=== PATIENT | male | born 1945 | race Caucasian/White ===

== ENCOUNTER 2016-07-19 11:25 | Outpatient (CLI) | payer MEDICARE, OTHER ==
[~2016-07-19] VITALS: Ht 175.3 cm; Wt 99.1 kg
--- NOTE | ~2016-07-19 | OP ---
PATIENT NAME: VERONIQUE STERLING MEDICAL RECORD: [id number] :43 LOCATION:D.CAT ADMISSION DATE: SURGEON: KULDEEP HUNT MD DATE OF OPERATION: 07/19/2016 PROCEDURES: Left heart catheterization, selective coronary angiography, right radial approach. CATHETERS: A 5-Kiswahili sheath. The procedure was well tolerated and we proceeded immediately to PTCA stenting of the LAD. FINDINGS: Left ventriculography in 30-degree MEAD view shows mild global hypokinesis, EF appears to be marked reduced 40% to 45%. CORONARY ANATOMY: Left main: Left main is free of disease. LAD: Has a long diffuse stenosis about 80%, starting at takeoff of the first septal and ____ takeoff of the first diagonal. CIRCUMFLEX: Large vessel, free of disease. RIGHT CORONARY ARTERY: Free of disease. IMPRESSION: Single-vessel disease, mild myopathy. PLAN: Intervention of this vessel momentarily. DESCRIPTION OF PROCEDURE: A 5-Kiswahili sheath was changed for a 6-Kiswahili sheath. An XB LAD guide catheter provided good guide catheter support followed by ____ cm BMW wire was placed across the site occluded LAD, down a portion of this vessel. Stent deployed was a 3.5 x 15-mm Integrity nondrug eluting stent to 14 atmospheres. Final angiography shows excellent resolution of 80% stenosis, no significant residual. Plavix was loaded in the lab. Sheath was closed with TR band. Integrilin was used. We will also add ARB for his mild myopathy. TRANSINT:[id number] Voice Confirmation ID: [id number] DOCUMENT ID: [id number] KULDEEP HUNT MD CC: [id number] DICTATION DATE: 07/19/16 1458 SUPERVISOR BOTTLE MACHINES: 07/19/16 2343 DEP CLI 07/19/16 [place] [id number] [place] [id number]
--- NOTE | ~2016-07-19 | HP ---
PATIENT: VERONIQUE STERLING MEDICAL RECORD: [id number] ACCOUNT: [id number] LOCATION:[facility]EL[facility] : 43 ADMISSION DATE: 07/19/16 HISTORY AND PHYSICAL EXAMINATION HISTORY OF PRESENT ILLNESS: A 71-year-old gentleman with a history of dyspnea on exertion/angina, who underwent Cardiolite stress testing in the office showed a reversible defect with decreased LV systolic function, EF 45%. He is being admitted for diagnostic angiography. PAST MEDICAL HISTORY: Includes a history of gastroesophageal reflux disease, osteoarthritis. REVIEW OF SYSTEMS: The patient reports easy bruising but reports no swollen glands. The patient reports no fever, no night sweats, no significant weight gain, no significant weight loss. No significant exercise tolerance. The patient reports no dry eyes, no irritation, no vision change. Patient reports no difficulty hearing and no ear pain. Patient reports no frequent nose bleeds or nose and sinus problems. Patient reports on arm pain on exertion. No shortness of breath while lying down. No history of heart murmur. Patient reports no cough, no wheezing or coughing up blood. Patient reports no abdominal pain, no vomiting. Normal appetite. No diarrhea and not vomiting blood. No nausea and no constipation. Patient reports no incontinence. No difficulty urinating. No hematuria. No increased frequency. Patient reports no muscle aches. No weakness, no arthralgias, no back pain. No swelling of the extremities. Patient reports no abnormal mole, no jaundice, no rashes. Reports no loss of consciousness. No weakness and no numbness. No seizures, dizziness, or headaches. The patient reports no depression, no sleep disturbance, feeling safe in a relationship and no alcohol abuse. Patient reports on fatigue. Reports no runny nose or sinus pressure. No itching, no hives, and no frequent sneezing. PHYSICAL EXAMINATION: GENERAL: Pleasant gentleman in no acute distress, appears stated age. VITAL SIGNS: Pulses 80 and regular, blood pressure 116/62. HEENT: Normocephalic and atraumatic. NECK: Negative JVD or bruit. HEART: Regular. LUNGS: Echols clear. ABDOMEN: Soft and nontender. EXTREMITIES: Pulse 2+. There is no edema. NEUROLOGIC: Grossly intact. IMPRESSION: Angina with positive nuclear stress testing. PLAN: Catheterization and intervention based on the above. TRANSINT:[id number] Voice Confirmation ID: [id number] DOCUMENT ID: [id number] HISTORY AND PHYSICAL [id number] VERONIQUE STERLING GREGORY A MD CC: [id number] DICTATION DATE: 07/19/16 151 SIZING END BANDER: 07/19/16 1618 REG [facility] [address] [place] [id number]
--- NOTE | ~2016-07-19 | HEMODYNAMI ---
PATIENT:VERONIQUE STERLING MEDICAL RECORD: [id number] : 41 LOCATION:DTIERRA ADMISSION DATE: 07/19/16 Generatedon:07/19/201614:59 Patient name: VERONIQUE STERLING Patient #: [id number] SSN: : 1945 Date of study: 07/19/2016 Page: Of Hemodynamic Procedure Report Patient Data Patient Demographics Procedure consent was obtained First Name: VERONIQUE Gender: Male Last Name: ASHER : 1945 Patient #: [id number] Age: 71 year(s) Race: Unknown Additional ID: [id number] Contact details [address]: [address] [place] [address] State: [place] City: [place] Zip code: [address] Past Medical History Allergies Allergen Reaction Date Comments Reported Sulfa drugs 07/19/2016 Admission Admission Data Admission Date: 07/19/2016 Admission Time: 11:25 Lab Results Lab Result Date: 07/19/2016 Lab Result Time: 0:00 Biochemistry Name Units Result Min Max BUN mg/dl 17 --(---*)-- 7 18 Creatinine mg/dl 1.1 --(--*-)-- 0.6 1.3 CBC Name Units Result Min Max Hemoglobin g/dl 16.7 --(---*)-- 13.5 17.5 Procedure Procedure Types Cath Procedure Diagnostic Procedure [facility] w/Coronaries PCI Procedure Coronary Stent Initial Miscellaneous Procedures Moderate Sedation up to 30 minutes Procedure Description Procedure Date Procedure Date: 07/19/2016 Procedure Start Time: 14:36 Procedure End Time: 14:58 Procedure Staff Name Function Michelle Valdez RN Nurse Sudhir Watson RT Scrub Shine Roa RT Monitor Joaquín Braxton MD Performing Physician Procedure Data Cath Procedure Fluoroscopy Diagnostic fluoroscopy Total fluoroscopy Time: 4.5 time: 4.5 min min Diagnostic fluoroscopy Total fluoroscopy dose: 847 dose: 847 mGy mGy Contrast Material Contrast Material Type Amount (ml) Isovue 300 123 Entry Location Entry Primary Successful Side Size Upsize Upsize Entry Closure Pak ccessful Closure Location (Fr) 1 (Fr) 2 (Fr) Remarks Device Remarks Radial Right 6 Fr Mechanical artery Short Compression Procedure Complications No complications Procedure Medications Medication Administration Route Dosage Oxygen NC 2 l/min Heparin Flush Bag added to field 2 bags (1000units/500ml NS) Lidocaine 2% added to field 20 Radial Cocktail added to field 1 syringe (Verapomil 2mg/Nitro 400mcg/Heparin 1500units) Benadryl I.V. 50 mg Versed I.V. 1 mg Fentanyl I.V. 50 mcg Versed I.V. 1 mg Fentanyl I.V. 50 mcg Versed I.V. 1 mg Radial Cocktail I.A. 1 syringe (Verapomil 2mg/Nitro 400mcg/Heparin 1500units) Heparin Bolus I.V. 5000 units Integrilin (Bolus I.V. 9 ml 2mg/ml) Versed I.V. 1 mg Plavix P.O. 600 mg Hemodynamics Rest HGB: 16.7 (g/dl) Heart Rate: 89 (bpm) Pressure Samples Time Site Value (mmHg) Purpose Heart Use Rate(bpm) 14:36 LV 125/-1,7 EDP 36 14:37 AO 125/89(106) Pullback 89 14:37 LV 122/6,7 Pullback 89 Gradients Valve Time Site 1 Site 2 Mean SEP/DFP Peak To Heart Use (mmHg) (sec/min) Peak Rate (mmHg) (bpm) Aortic 14:37 LV AO 0 5 0 89 122/6,7 125/89(106) Calculations Valve P-P Mean Valve Index Valve Source Name Gradient Area Flow (cm2) Aortic 0 0 0 0 Snapshots Pre Cath Intra NCS Post Cath Vital Signs Time Heart Resp SPO2 etCO2 [id number] NIBP (mmHg) Rhythm Pain Sedatio n Rate (ipm) (%) (mmHg) (mmHg) Status Level (bpm) 14:19:26 98 12 98 0 0 Measuring NSR 0 (11) 10(A) , No pain 14:19:57 84 16 98 0 0 138/102(116) NSR 0 (11) 10(A) , No pain 14:24:05 69 18 98 0 0 153/95(123) NSR 0 (11) 10(A) , No pain 14:28:19 82 19 98 0 0 160/100(116) NSR 0 (11) 10(A) , No pain 14:32:37 92 15 98 0 0 163/105(134) NSR 0 (11) 9(A) , No pain 14:36:49 96 16 95 0 0 138/97(116) NSR 0 (11) 9(A) , No pain 14:40:59 95 16 95 0 0 142/91(124) NSR 0 (11) 9(A) , No pain 14:45:04 96 16 95 0 0 135/87(116) NSR 0 (11) 9(A) , No pain 14:49:12 93 16 96 0 0 132/94(117) NSR 0 (11) 10(A) , No pain 14:54:11 95 12 97 0 0 132/104(122) NSR 0 (11) 10(A) , No pain Medications Time Medication Route Dose Verified Delivered Reason Note s Effectiveness by by 14:17:06 Oxygen NC 2 l/min Joaquín Michelle Per physician [facility] Georgi Valdez RN, MD 14:17:35 Heparin Flush added 2 bags Joaquín Joaquín used for Bag to [facility] procedure (1000units/500ml field MD LOJA NS) 14:17:43 Lidocaine 2% added 20ml Joaquín Sierraory used for to vial [place] [facility] procedure field MD LOJA 14:17:51 Radial Cocktail added 1 Joaquín Joaquín used for ([facility] 2mg/Nitro field MD LOJA 400mcg/Heparin 1500units) 14:25:18 Benadryl I.V. 50 mg Joaquín Michelle Per physician [facility] Georgi Valdez RN, MD 14:28:13 Versed I.V. 1 mg Joaquín Michelle for sedation St. Georgi Valdez RN, MD 14:28:31 Fentanyl I.V. 50 mcg Joaquín Michelle for sedation St. Georgi Valdez RN, MD 14:30:29 Versed I.V. 1 mg Joaquín Michelle for sedation [facility]. Georgi Valdez RN, MD 14:30:38 Fentanyl I.V. 50 mcg Joaquín Michelle for sedation St. Georgi Valdez RN, MD 14:33:43 Versed I.V. 1 mg Joaquín Michelle for sedation St. Georgi Valdez RN, MD 14:35:37 Versed I.V. 1 mg Joaquín Pillaica for sedation St. Georgi Valdez RN, MD 14:36:30 Radial Cocktail I.A. 1 Joaquín Yanes for (Verapomil syringe [facility]. Georgi Braxton vasodilation 2mg/Nitro MD LOJA 400mcg/Heparin 1500units) 14:42:30 Heparin Bolus I.V. 5000 Joaquín Martinez for dose units [facility]. Georgi Valdez RN anticoagulation verified wtih dr dawson 14:45:49 Integrilin I.V. 9 ml Joaquín Martinez for wast ed 1 (Bolus 2mg/ml) [facility]. Georgi Valdez RN antiplatelet ML MD therapy 14:50:13 Plavix P.O. 600 mg Joaquín Michelle for [facility]. Georgi Valdez RN antiplatelet MD therapy Procedure Log Time Note 13:55:17 Shine Roa RT(R) sent for patient. Start room use. 14:03:18 Time tracking: Regular hours 14:03:23 Plan of Care:Hemodynamics will remain stable., Cardiac rhythm will remain stable., Comfort level will be maintained., Respiratory function will remain adequate., Patient/ family verbilizes understanding of procedure., Procedure tolerated without complication., Recovers from procedure without complications.. 14:10:33 Patient received from Pre/Post Procedure Room to [facility]3] 1 Alert and oriented. Tansferred to table in Supine position. 14:10:35 Correct patient and procedure confirmed by team. 14:10:35 Warm blankets applied, and shae hugger turned on for patient comfort. 14:10:38 Signed procedure consent form obtained from patient. 14:10:39 ECG and BP/O2 sat monitors applied to patient. 14:17:06 Oxygen 2 l/min NC was administered by Michelle Valdez RN; Per physician; 14:17:35 Heparin Flush Bag (1000units/500ml NS) 2 bags added to field was administered by Joaquín Braxton MD; used for procedure; 14:17:36 Vital chart was started 14:17:43 Lidocaine 2% 20ml vial added to field was administered by Joaquín Braxton MD; used for procedure; 14:17:51 Radial Cocktail (Verapomil 2mg/Nitro 400mcg/Heparin 1500units) 1 syringe added to field was administered by Joaquín Braxton MD; used for procedure; 14:25:03 Baseline sample Acquired. 14:25:07 Rhythm: sinus tachycardia 14:25:08 Full Disclosure recording started 14::18 Benadryl 50 mg I.V. was administered by Michelle Valdez RN; Per physician; 14:25:18 Pre-procedure instructions explained to patient. 14:25:19 Pre-op teaching completed and patient verbalized understanding. 14:25:21 Family in waiting room. 14:25:26 Patient NPO since Midnight. 14:25:40 Patient allergic to Sulfa drugs 14:25:42 Is the patient allergic to Iodine/contrast media? No. 14::44 Is patient on blood thinner?No 14:25:46 Patient diabetic? No. 14::47 ----Pre-sedation anethsthesia assessment.---- 14:25:50 Previous problem with sedation/anesthesia? No ? 14:25:51 Snore? Yes 14:25:52 Sleep apnea? No 14:25:54 Deviated septum? No 14:25:55 Opens mouth fully? Yes 14:25:58 Sticks out tongue? Yes 14:26:00 Airway obstruction? No ? 14:26:04 Dentures? Yes in tight 14:26:11 Pre procedure: right dorsailis pedis pulse 1+ Palpable, but thready & weak; easily obliterated 14:26:14 Modified Heladio's test Ulnar > 7 seconds. 14:26:17 Patient pain scale 0/10 ?. 14:26:22 IV patent on arrival in left wrist with 0.9% NaCl at 10ml/hr. 14::47 Lab Result : Creatinine 1.1 mg/dl 14::47 Lab Result : BUN 17 mg/dl 14::48 Lab Result : Hemoglobin 16.7 g/dl 14::51 Lab results completed and on chart. 14::53 Right Radial & Right Groin area was prepped with chlora-prep and draped in sterile fashion 14::55 Alarms reviewed by R. N. 14::55 Sharps counted by scrub and verified by R.N. 14::56 --------ALL STOP TIME OUT------ 14:26:57 Final Timeout: patient, procedure, and site verified with staff and physician. All members of the team are in agreement. 14:26:58 Right Radial & Right Groin site verified by team. 14:27:02 Physical assessment completed. ASA score P 2 - A patient with mild systemic disease as per Kwasi Hunt MD. 14:27:06 Sedation plan: IV Moderate Sedation Versed, Fentanyl 14:27:11 Use device set Radial Dx 14:27:12 Acist Syringe opened to sterile field. 14:27:12 Medline Cath Pack opened to sterile field. 14:27:13 Bag Decanter opened to sterile field. 14:27:13 Terumo 6Fr Slender Glidesheath opened to sterile field. 14:27:13 St Otf 260cm J .035 wire opened to sterile field. 14:27:14 Acist Hand Control opened to sterile field. 14:27:14 Acist Manifold opened to sterile field. 14:27:15 Tegaderm 4 x 4 opened to sterile field. 14:27:15 MBrace Wrist Support opened to sterile field. 14:28:13 Versed 1 mg I.V. was administered by Michelle Valdez RN; for sedation; 14:28:31 Fentanyl 50 mcg I.V. was administered by Michelle Valdez RN; for sedation; 14:30:29 Versed 1 mg I.V. was administered by Michelle Valdez RN; for sedation; 14:30:38 Fentanyl 50 mcg I.V. was administered by Michelle Valdez RN; for sedation; 14:33:43 Versed 1 mg I.V. was administered by Michellediane Valedz RN; for sedation; 14:35:37 Versed 1 mg I.V. was administered by Michellediane Valdez RN; for sedation; 14:35:44 Procedure started. 14:36:17 Local anesthetic to right radial artery with Lidocaine 2% by Joaquín Braxton MD.INITIAL ACCESS ONLY 14:36:26 A 6 Fr Short sheath was inserted into the Right Radial artery 14:36:30 Radial Cocktail (Verapomil 2mg/Nitro 400mcg/Heparin 1500units) 1 syringe I.A. was administered by Joaquín Braxton MD; for vasodilation; 14:36:37 Terumo 6Fr [place] 4.0 guide catheter opened to sterile field. 14:36:45 LV angiography performed. 14:36:51 LV gram done using MEAD 14:36:53 LV hemodynamics recorded. 14:36:56 Injector settings: Ml/sec: 7, Volume: 15, 14:37:19 EF : 45 % 14:38:13 LCA angiography performed. 14:39:20 RCA angiography performed. 14:39:33 LCA angiography performed. 14:39:58 Catheter removed. 14:42:10 DailyPath BasixCompak Inflation Kit opened to sterile field. 14:42:11 Ecelles Carson BMW [place] 2 J-tip 300cm 0.014 guide wir opened to sterile field. 14:42:11 LegUP 6FR XBLAD 3.5 guide catheter opened to sterile field. 14:42:30 Heparin Bolus 5000 units I.V. was administered by Michelle Valdez RN; for anticoagulation; dose verified wtih dr dawson 14:42:36 6 Fr XBLAD 3.5 guide catheter was inserted over the wire 14:44:05 ACC PCI Site: pLAD has 80% stenosis. 14:44:08 ACC Pre-intervention ARMIDA Flow is 3. 14:44:54 BMW wire advanced. 14:45:49 Integrilin (Bolus 2mg/ml) 9 ml I.V. was administered by Michelle Valdez RN; for antiplatelet therapy; wasted 1 ML 14:47:22 Inflation Number: 1 A Medtronic Integrity 3.5 X 15 stent was prepped and advanced across the Prox LAD. The stent was deployed at 0 TOMAS for 0:30 (min:sec). 14:47:46 Stent catheter was removed intact over wire. 14:47:46 Wire removed. 14:47:47 Guide catheter removed. 14:47:50 ACC Post-intervention ARMIDA Flow is 3. 14:48:03 Sheath removed intact; hemostasis achieved with Mechanical Compression to the Right Radial artery. 14:48:08 Terumo TR Band Standard opened to sterile field. 14:48:11 Procedure ended.(Physican Out) 14:48:24 Contrast amount:Isovue 300 123ml. 14:48:31 Fluoroscopy time 04.50 minutes. 14:48:52 Fluoroscopy dose: 847 mGy 14:48:52 Flurop Dose total: 847 14:50:13 Plavix 600 mg P.O. was administered by Michelle Valdez RN; for antiplatelet therapy; 14:50:15 Sharps counted by scrub and verified by R.N. 14:50:18 TR band inflated with 10cc of air. 14:50:22 Insertion/operative site no bleeding no hematoma. 14:50:31 Post right radial artery:stable 14:51:44 Post Procedure Pulses reassessed and unchanged 14:52:56 Post procedure rhythm: sinus rhythm 14:52:57 Post procedure instruction explained to patient.Patient verbalizes understanding. 14:53:12 Procedure type changed to Cath procedure, Diagnostic procedure, LHC, LHC w/Coronaries, PCI procedure, Coronary Stent Initial, Miscellaneous Procedures, Moderate Sedation up to 30 minutes 14:53:36 Procedure and supply charges have been captured, reviewed, submitted and are correct. 14:54:10 Procedure Complication : No complications 14:54:13 Vital chart was stopped 14:58:25 See physician's report for complete and final results. 14:58:28 Report given to Pre/Post Procedure Room. 14:58:32 Patient transfered to Pre/Post Procedure Room with Stretcher. 14:58:34 Procedure ended. 14:58:34 Full Disclosure recording stopped 14:58:46 ACC-PCI Only Patient was given prescriptions, or instructed by Joaquín Braxton MD to start/continue the following medications upon discharge: Plavix 14:58:48 End room use (Document Last) Intervention Summary Intervention Notes Time ActionType Lesion and Equipment Action# Pressure Duration Attributes Used 14:47:22 Place stent Prox LAD Medtronic 1 0 00:30 Integrity 3.5 X 15 stent Device Usage Item Name Manufacture Quantity Catalog Hospital Part Current Minimal Lot# / Number Charge Number Stock Stock Serial# Code Acist Acist 1 32163 [id number] 895395 [id number] 20 Compliance Assurance Medical Systems Inc Medline Cardinal 1 [id number] 759102 27545 766072 5 Cath Pack Health Bag Microtek 1 2001S 683641 66987 300003 5 Delta Plant Technologies Medical Inc. Terumo 6Fr Terumo 1 [id number] 023388 409829 924212 [address] Ot[address] St Otf 1 958221 167641 814336 375160 30 260cm J .035 wire Acist Hand Acist 1 40810 044589 813622 715189 5 Control Medical Systems Inc Acist Acist 1 45797 342986 669703 655942 5 Manifold Medical Systems Inc Tegaderm 4 3M 1 1626W 179210 806578 008123 5 x 4 MBrace Advanced 1 140-0250-00 628230 83897 750291 5 Wrist Vascular Support Dynamics Terumo 6Fr Terumo 1 43-3311 773537 921880 993061 1 [place] 4.0 guide catheter Merit Merit 1 [id number] 196943 272970 736766 15 BasixCompak Medical Inflation Kit Carpio BMW Carpio 1 [id number] 696812 286859 320767 5 [place] 2 Vascular J-tip 300cm 0.014 guide wir Cordis 6FR Cardinal 1 [id number] 565850 094364 790994 10 XBLAD 3.5 Health guide catheter Medtronic Medtronic 1 [id number] 592931 759579 715664 7 [id number] Integrity 3.5 X 15 stent Terumo TR Terumo 1 [id number] 022891 890194 340585 40 Band Standard Signature Audit [place] Stage Time Signature Unsigned Intra-Procedure 07/19/2016 Shine Roa 2:59:10 PM RT(R) Signatures Monitor : Shine Roa RT Signature : Date : Time : [facility] [address] [place] [address]
[2016-07-19] MEDS ORDERED: CYMBALTA60 MG PO (12:16)
[2016-07-19] MEDS ORDERED: CIALIS5 MG PO (12:17)
[2016-07-19] MEDS ORDERED: PROTONIX40 MG PO (12:18)
[2016-07-19] MEDS ORDERED: FOLATE0.4 MG PO (12:18)
[2016-07-19 12:20] VITALS: BP 160/94; Ht 175.3 cm; Wt 99.1 kg
[2016-07-19 12:54] LABS: BASOPHILS 0.4 % (0-2); EOSINOPHILS 5.9 % (0-7); HEMATOCRIT 50.8 % (42.0-54.0); HEMOGLOBIN 16.7 g/dL (13.5-17.5); IMMATURE GRANULOCYTES 0.2 % (0-5); LYMPHOCYTES 27.3 % (15-50); MCH 30.3 pg (26.0-34.0); MCHC 32.9 g/dL (31.0-37.0); MCV 92.2 fL (80.0-100.0); MEAN PLATELET VOLUME 9.3 fL (7.4-10.4); MONOCYTES 13.2 % (2-11); PLATELET COUNT 244 10x3/uL (130-400); RBC 5.51 10x6/uL (4.20-6.10); RDW 13.1 % (11.5-14.5)
[2016-07-19 13:24] LABS: ANION GAP 7.6 mmol/L (8-16); CALCIUM 9.2 mg/dL (8.5-10.1); CARBON DIOXIDE 34.2 mmol/L (21.0-32.0); CREATININE - SERUM 1.1 mg/dL (0.6-1.3); POTASSIUM - SERUM 4.8 mmol/L (3.5-5.1)
[2016-07-19] MEDS ORDERED: HYZAAR 50-12.51 TAB PO (15:18)
[2016-07-19] MEDS ORDERED: PLAVIX75 MG PO (15:19)
--- NOTE | 2016-07-19 19:15 | NUR ---
1530-RIGHT WRIST-CDI, TR BAND INTACT, NO BLEEDING NOTED 1600-TR BAND INTACT, NO BLEEDING, AT SIDE
--- NOTE | 2016-07-19 19:47 | NUR ---
1900-TR BAND OFF- NO BLEEDING- BAND AID APPLIED, WRITTEN AND VERBAL INSTRUCTIONS GIVEN TO PT AND , VERBAL UNDERSTANDING, DENIES FURTHUR NEEDS, D'C HOME WITH
== END 2016-07-19 19:15 | disposition home or self-care (01) ==
LOC: D.CATH 11:25
PROVIDERS: Internal Medicine Interventional Cardiology
DX: I20.9 Angina pectoris, unspecified (principal); R94.30 Abnormal result of cardiovascular function study, unspecified; Z01.812 Encounter for preprocedural laboratory examination

== ENCOUNTER → 2018-02-12 09:31 | Outpatient (CLI) | payer MEDICARE, OTHER ==
[2016-07-19 12:20] VITALS: BMI 32.2
--- NOTE | ~2018-02-12 | ST ---
PATIENT:VERONIQUE STERLING MEDICAL RECORD: [id number] SEX: M LOCATION:[facility] ORDER #: ADMISSION DATE: 02/12/18 AGE OF PATIENT: 73 REFERRING PHYSICIAN: INTERPRETING PHYSICIAN: NITHYA GROVE MD DATE OF SERVICE: 02/12/2018 PROCEDURE: Nuclear Stress Test. INDICATION: Angina and coronary artery disease, hypertension, palpitations, it was pharmacologic. The patient was exercised on standard Lexiscan protocol with 33.0 mCi of sestamibi injected at peak stress, 11.0 mCi injected previously for rest images. FINDINGS: Gated SPECT reveals a depressed ejection fraction of 45% with decreased thickening and brightening throughout the inferior segments. SPECT imaging: Cardiolite was used myocardial fusion agent. There is a mixed perfusion defect inferiorly partially fixed, partially reversible. This includes the basal, mid apical inferior segments. There is reversibility laterally. These includes the basal, mid, apical, lateral segments. OVERALL IMPRESSION: This is an abnormal nuclear stress test, fixed perfusion defect inferiorly, reversibility laterally, suggestive of coronary artery disease and possibly multivessel disease. We will proceed with coronary angiography as follow study. TRANSINT:[id number] Voice Confirmation ID: [id number] DOCUMENT ID: [id number] NITHYA GROVE MD at 1718 CC: [id number] DICTATION DATE: 02/12/18 1641 [facility] OFFICER: 02/13/18 0733 [facility] CLI 02/12/18 [facility] [address] [place] [address]
[~2018-02-12 09:31] MED LIST: BAYER CHEWABLE81 MG PO; CIALIS5 MG PO; CRESTOR5 MG PO; CURCUMIN PO; CYMBALTA60 MG PO; FOLATE0.4 MG PO; HYZAAR 50-12.51 TAB PO; LOPRESSOR25 MG PO; METHYLFOLATE PO; MOBIC7.5 MG PO; PLAVIX75 MG PO; PROTONIX40 MG PO; SINGULAIR10 MG PO; VITAMIN B-12500 MC1 PO; VITAMIN D2000 UNIT PO
== END | disposition home or self-care (01) ==
LOC: D.HCCARDIO 09:30
DX: I25.119 Atherosclerotic heart disease of native coronary artery with unspecified angina pectoris (principal)

== ENCOUNTER 2018-02-18 10:48 | Outpatient (CLI) | payer MEDICARE, OTHER ==
[~2018-02-18] VITALS: Ht 175.3 cm; Wt 102.3 kg
--- NOTE | ~2018-02-18 | HEMODYNAMI ---
PATIENT:VERONIQUE STERLING MEDICAL RECORD: [id number] : 41 LOCATION:[facility] ADMISSION DATE: 02/18/18 Generatedon:02/18/201813:56 Patient name: VERONIQUE STERLING Patient #: [id number] SSN: : 1945 Date of study: 02/18/2018 Page: Of Hemodynamic Procedure Report Patient Data Patient Demographics Procedure consent was obtained First Name: VERONIQUE Gender: Male Last Name: ASHER : 1945 Patient #: [id number] Age: 73 year(s) Race: Unknown Additional ID: [id number] Contact details [address]: [address] [place] [address] State: [place] City: [place] Zip code: [address] Past Medical History Allergies Allergen Reaction Date Comments Reported Sulfa drugs 07/19/2016 Other allergy 02/18/2018 Sulfa Admission Admission Data Admission Date: 02/18/2018 Admission Time: 10:48 Height (in.): 70 BSA: 2.19 (m2) Height (cm.): 177.8 BMI: 32.14 (kg/m2) Weight (lbs.): 224 Weight (kg.): 101.6 Lab Results Lab Result Date: 02/18/2018 Lab Result Time: 0:00 Biochemistry Name Units Result Min Max BUN mg/dl 18 --(---*)-- 7 18 Creatinine mg/dl 1.1 --(--*-)-- 0.6 1.3 CBC Name Units Result Min Max Hemoglobin g/dl 14.4 --(*---)-- 13.5 17.5 Procedure Procedure Types Cath Procedure Diagnostic Procedure C [facility] w/Coronaries Procedure Description Procedure Date Procedure Date: 02/18/2018 Procedure Start Time: 13:43 Procedure End Time: 13:55 Procedure Staff Name Function Kwasi Hunt MD Performing Physician Caroline Serrano RT Monitor Noelle Diego RN Nurse Leighann Crespo RT Scrub Joaquín Gregory MD Performing Physician Procedure Data Cath Procedure Fluoroscopy Diagnostic fluoroscopy Total fluoroscopy Time: 3.2 time: 3.2 min min Diagnostic fluoroscopy Total fluoroscopy dose: 762 dose: 762 mGy mGy Contrast Material Contrast Material Type Amount (ml) Isovue 300 60 Entry Location Entry Primary Successful Side Size Upsize Upsize Entry Closure Pak ccessful Closure Location (Fr) 1 (Fr) 2 (Fr) Remarks Device Remarks Radial Right 6 Fr Mechanical artery Short Compression Estimated blood loss: 10 ml Diagnostic catheters Device Type Used For End Catheter Placement DIAGNOSTIC Nineveh 110cm 5 Procedure Fr catheter ([id number]) Procedure Complications No complications Procedure Medications Medication Administration Route Dosage Oxygen etCO2 Nasal cannula 2 l/min Lidocaine 2% added to field 20 Heparin Flush Bag added to field 2 bags (1000units/500ml NS) 0.9% NaCl I.V. 100 ml/hr Radial Cocktail added to field 1 syringe (Verapomil 2mg/Nitro 400mcg/Heparin 1500units) Versed I.V. 2 mg Fentanyl I.V. 100 mcg Versed I.V. 1 mg Fentanyl I.V. 50 mcg Hemodynamics Rest BSA: 2.19 (m2) O2 Consumption: Estimated: 252.28 (ml/min) O2 Consumption indexed : Estimated:115.2 (ml/min/m) Heart Rate: 71 (bpm) Pressure Samples Time Site Value (mmHg) Purpose Heart Use Rate(bpm) 13:45 LV 106/-6,0 Snapshot 71 13:45 LV 106/-6,5 Snapshot 82 13:45 AO 99/68(82) Pullback 79 13:45 LV 99/2,3 Pullback 79 Gradients Valve Time Site 1 Site 2 Mean SEP/DFP Peak To Heart Use (mmHg) (sec/min) Peak Rate (mmHg) (bpm) Aortic 13:45 LV AO 0 79 99/2,3 99/68(82) Calculations Valve P-P Mean Valve Index Valve Source Name Gradient Area Flow (cm2) Aortic 0 0 Snapshots Pre Cath Intra NCS Post Cath Vital Signs Time Heart Resp SPO2 etCO2 NIBP (mmHg) Rhythm Pain Sedation Rate (ipm) (%) (mmHg) Status Level (bpm) 13:40:14 77 14 94 8.2 149/83(132) NSR 0 (11) 10(A) , No pain 13:44:34 82 15 97 37.6 133/75(112) NSR 0 (11) 9(A) , No pain 13:48:48 84 15 93 36.1 107/76(101) NSR 0 (11) 9(A) , No pain 13:52:54 78 15 94 30.8 118/74(98) NSR 0 (11) 10(A) , No pain Medications Time Medication Route Dose Verified Delivered Reason Notes Effectiveness by by 13:33:47 Oxygen etCO2 2 l/min Joaquín Drake used for Nasal St Georgi Diego RN procedure cannula 13:37:19 Lidocaine 2% added 20ml Joaquín Yanes for local to vial [facility] anesthetic field MD LOJA 13:38:35 Heparin Flush added 2 bags Joaquín Yanes used for Bag to [facility] procedure (1000units/500ml field MD LOJA NS) 13:38:47 0.9% NaCl I.V. 100 Joaquín Drake used for ml/hr St Georgi walters MD 13:42:52 Versed I.V. 2 mg Joaquín Drake for sedation St Georgi Diego RN, MD 13:42:58 Fentanyl I.V. 100 mcg Joaquín Drake for sedation St Georgi Diego RN, MD 13:44:43 Radial Cocktail added 1 Joaquín Yanes for (Verapomil to syringe [facility] vasodilation 2mg/Nitro field MD LOJA 400mcg/Heparin 1500units) 13:47:28 Versed I.V. 1 mg Joaqíun Drake for sedation St Georgi Diego RN, MD 13:47:33 Fentanyl I.V. 50 mcg Joaquín Drake for sedation St Georgi Diego RN, MD Procedure Log Time Note 13:18:19 Patient Height : 70 inches 13:18:24 Patient Weight : 224 lbs 13:19:10 Diagnostic Cath status Elective 13:19:12 Noelle Diego RN sent for patient. Start room use. 13:19:14 Time tracking: Regular hours (M-F 7:00 - 5:00) 13:19:39 Plan of Care:Hemodynamics will remain stable., Cardiac rhythm will remain stable., Comfort level will be maintained., Respiratory function will remain adequate., Patient/ family verbilizes understanding of procedure., Procedure tolerated without complication., Recovers from procedure without complications.. 13:19:44 Patient received from Pre/Post Procedure Room to [facility] 2 Alert and oriented. Tansferred to table in Supine position. 13:23:06 Warm blankets applied, and shae hugger turned on for patient comfort. 13:23:06 Correct patient and procedure confirmed by team. 13:23:08 Signed procedure consent form obtained from patient. 13:23:43 H&P Date Dictated: 01/22/2018 Within 30 days and on chart., H&P Addendum completed by physician on day of procedure. (MUST COMPLETE FOR ALL OUTPATIENTS). 13:23:47 Pre-procedure instructions explained to patient. 13:23:55 Family in waiting room. 13:24:03 Patient NPO since Midnight. 13:24:18 Patient allergic to Other allergySulfa 13:24:21 Is the patient allergic to Iodine/contrast media? No. 13:24:22 Was the patient premedicated? Yes 13:33:47 Oxygen 2 l/min etCO2 Nasal cannula was administered by Noelle Diego RN; used for procedure; 13:36:34 Is patient on blood thinner?No 13:36:41 Patient diabetic? No. 13:37:19 Lidocaine 2% 20ml vial added to field was administered by Joaquín Gregory MD; for local anesthetic; 13:37:46 Snore? Yes 13:37:48 Sleep apnea? No 13:38:00 Dentures? Yes ? 13:38:35 Heparin Flush Bag (1000units/500ml NS) 2 bags added to field was administered by Joaquín Gregory MD; used for procedure; 13:38:47 0.9% NaCl 100 ml/hr I.V. was administered by Noelle Diego RN; used for procedure; 13:39:05 Vital chart was started 13:40:07 Patient pain scale 0/10 ?. 13:40:12 IV patent on arrival in left forearm with 0.9% NaCl at [facility]. 13:41:04 Lab Result : BUN 18 mg/dl 13:41:04 Lab Result : Creatinine 1.1 mg/dl 13:41:04 Lab Result : Hemoglobin 14.4 g/dl 13:41:15 Right Radial & Right Groin area was prepped with chlora-prep and draped in sterile fashion 13:41:16 Alarms reviewed by R. N. 13:41:17 Sharps counted by scrub and verified by R.N. 13:41:27 Physician arrived 13:41:28 --------ALL STOP TIME OUT------ 13:41:29 Final Timeout: patient, procedure, and site verified with staff and physician. All members of the team are in agreement. 13:41:32 Right Radial & Right Groin site verified by team. 13:41:41 Physical assessment completed. ASA score P 2 - A patient with mild systemic disease as per Joaquín Gregory MD. 13:41:45 Sedation plan: IV Moderate Sedation Medication:Versed, Fentanyl 13:41:49 Use device set Radial Dx or PCI 13:41:51 ACIST Syringe (02449) opened to sterile field. 13:41:51 Medline Cath Pack ([id number]) opened to sterile field. 13:41:52 Bag Decanter (2002) opened to sterile field. 13:41:52 DIAGNOSTIC WIRE .035 260cm J wire (374769) opened to sterile field. 13:41:53 Tegaderm 4 x 4 (1626W) opened to sterile field. 13:41:54 MBrace Wrist Support ([id number]) opened to sterile field. 13:41:56 NEEDLE Cook 21G 4cm Radial (N73618) opened to sterile field. 13:42:00 SHEATH 6FR Slender (86-1878) opened to sterile field. 13:42:02 Procedure started. 13:42:02 Full Disclosure recording started 13:42:52 Versed 2 mg I.V. was administered by Noelle Diego RN; for sedation; 13:42:58 Fentanyl 100 mcg I.V. was administered by Noelle Diego RN; for sedation; 13:43:14 Local anesthetic to right radial artery with Lidocaine 2% by Joaquín Gregory MD.INITIAL ACCESS ONLY 13:43:56 A 6 Fr Short sheath was inserted into the Right Radial artery 13:44:21 ACIST Hand Control (23561) opened to sterile field. 13:44:21 ACIST Manifold (77597) opened to sterile field. 13:44:28 A DIAGNOSTIC Nineveh 110cm 5 Fr catheter (436069) was advanced over the wire and used for Procedure. 13:44:39 Zero performed for pressure channel P1 13:44:43 Radial Cocktail (Verapomil 2mg/Nitro 400mcg/Heparin 1500units) 1 syringe added to field was administered by Joaquín Gregory MD; for vasodilation; 13:45:08 Zero performed for pressure channel P1 13:45:51 EF : 55 % 13:46:15 LCA angiography performed. 13:47:28 Versed 1 mg I.V. was administered by Noelle Diego RN; for sedation; 13:47:33 Fentanyl 50 mcg I.V. was administered by Noelle Diego RN; for sedation; 13:47:41 RCA angiography performed. 13:50:05 TR BAND Standard ([id number]) opened to sterile field. 13:50:12 Catheter removed. 13:51:04 Sheath removed intact; hemostasis achieved with Mechanical Compression to the Right Radial artery. 13:51:06 Procedure ended.(Physican Out) 13:51:18 Fluoroscopy time 03.20 minutes. 13:51:22 Flurop Dose total: 762 13:51:22 Fluoroscopy dose: 762 mGy 13:51:27 Contrast amount:Isovue 300 60ml. 13:51:30 Sharps counted by scrub and verified by R.N. 13:52:52 TR band inflated with 10cc of air. 13:52:55 Post Procedure Pulses reassessed and unchanged 13:53:05 Post-procedure physical assessment completed. ASA score P 2 - A patient with mild systemic disease as per Joaquín Gregory MD. 13:53:30 Post procedure rhythm: unchanged. 13:53:37 Estimated blood loss: 10 ml 13:53:39 Post procedure instruction explained to patient.Patient verbalizes understanding. 13:53:47 Patient needs reinforcement of post procedure teaching. 13:54:12 Procedure and supply charges have been captured, reviewed, submitted and are correct. 13:54:48 Procedure Complication : No complications 13:54:51 Vital chart was stopped 13:54:52 See physician's report for complete and final results. 13:54:54 Report given to Pre/Post Procedure Room. 13:54:58 Patient transfered to Pre/Post Procedure Room with Stretcher. 13:55:01 Procedure ended. 13:55:01 Full Disclosure recording stopped 13:55:12 End room use (Document Last) Device Usage Item Name Manufacture Quantity Catalog Hospital Part Current Minimal Lot# / Number Charge Number Stock Stock Serial# Code ACIST Acist 1 71626 220039 427625 993575 20 Plazes (31396) Systems Inc Medline Medline 1 [id number] 158593 23609 895868 5 Cath Pack ([id number]) Bag Microtek 1 2001S 944981 70547 780968 5 Decanter Medical Inc. () DIAGNOSTIC St Otf 1 751229 349109 092608 988194 30 WIRE .035 260cm J wire (593943) Tegaderm 4 3M 1 1626W 348543 184624 502188 5 x 4 (1626W) MBrace Advanced 1 140-0250-00 017633 61115 350037 5 Wrist Vascular Support Dynamics ([id number]) NEEDLE Narvalous Medical 1 [id number] 503278 363957 474655 5 21G 4cm Radial (A24794) SHEATH 6FR Terumo 1 [id number] 098526 517918 846776 40 Slender (801060) ACIST Hand Acist 1 33879 126321 805159 953007 5 Control Medical (42827) Systems Inc ACIST Acist 1 88943 631121 342614 619811 5 Manifold Medical (09249) Systems Inc DIAGNOSTIC Terumo 1 40-9836 103408 095260 057521 5 Nineveh 110cm 5 Fr catheter (002589) TR BAND Terumo 1 [id number] 686355 901928 414096 40 Standard ([id number]) Signature Audit [place] Stage Time Signature Unsigned Intra-Procedure 02/18/2018 Caroline Serrano 1:56:33 PM RT(R) Signatures Monitor : Caroline Serrano Signature : RT Date : Time : [facility] [address] [place] [address]
--- NOTE | ~2018-02-18 | OP ---
PATIENT NAME: VERONIQUE STERLING MEDICAL RECORD: [id number] :41 LOCATION:D.CAT ADMISSION DATE: SURGEON: KULDEEP HUNT MD DATE OF OPERATION: 02/18/2018 PROCEDURE: Left heart catheterization, selective coronary angiography, right radial approach. CATHETERS: Radial sheath, [place] catheter. The procedure was well tolerated. The patient returned to the hinson. Sheath was removed and TR band was placed. FINDINGS: Left ventriculography in 30-degree MEAD view; normal wall motion and normal systolic function. CORONARY ANATOMY: LEFT MAIN: Left main is free of disease. LAD: An area of previous stenting is widely patent. No progression of gambell disease. CIRCUMFLEX: Free of disease. RIGHT CORONARY ARTERY: Free of disease. IMPRESSION: Widely patent stents. Normal LV function. No progression of gambell disease. TRANSINT:[id number] Voice Confirmation ID: [id number] DOCUMENT ID: [id number] KULDEEP HNUT MD at 1310 CC: [id number] DICTATION DATE: 02/18/18 1355 INVENTORY COORDINATOR: 02/18/18 1839 DEP CLI 02/18/18 [id number] [place] [address]
[~2018-02-18 10:48] MED LIST changes: -BAYER CHEWABLE81 MG PO; -CRESTOR5 MG PO; -CURCUMIN PO; -LOPRESSOR25 MG PO; -METHYLFOLATE PO; -MOBIC7.5 MG PO; -SINGULAIR10 MG PO; -VITAMIN B-12500 MC1 PO; -VITAMIN D2000 UNIT PO
[2018-02-18 11:25] VITALS: BP 140/83; Ht 175.3 cm; Wt 102.3 kg
[2018-02-18] MEDS ORDERED: VITAMIN D2000 UNIT PO (11:31)
[2018-02-18] MEDS ORDERED: MOBIC7.5 MG PO (11:31)
[2018-02-18] MEDS ORDERED: LOPRESSOR25 MG PO (11:32)
[2018-02-18] MEDS ORDERED: CRESTOR5 MG PO (11:32)
[2018-02-18] MEDS ORDERED: BAYER CHEWABLE81 MG PO (11:33)
[2018-02-18] MEDS ORDERED: VITAMIN B-12500 MC1 PO (11:33)
[2018-02-18] MEDS ORDERED: METHYLFOLATE PO (11:34)
[2018-02-18 11:35] LABS: HEMATOCRIT 43.6 % (42.0-54.0); HEMOGLOBIN 14.4 g/dL (13.5-17.5); MCH 32.4 pg (26.0-34.0); MCV 98.2 fL (80.0-100.0); MEAN PLATELET VOLUME 8.7 fL (7.4-10.4); PLATELET COUNT 229 10x3/uL (130-400); RBC 4.44 10x6/uL (4.20-6.10); RDW 14.4 % (11.5-14.5); WBC 15.2 10x3/uL (4.8-10.8)
[2018-02-18] MEDS ORDERED: CURCUMIN PO (11:35)
[2018-02-18] MEDS ORDERED: SINGULAIR10 MG PO (11:35)
[2018-02-18 11:44] LABS: ANION GAP 10.2 mmol/L (8-16); CALCIUM 8.8 mg/dL (8.5-10.1); CARBON DIOXIDE 28.9 mmol/L (21.0-32.0); CREATININE - SERUM 1.1 mg/dL (0.6-1.3); POTASSIUM - SERUM 4.1 mmol/L (3.5-5.1)
[2018-02-18 12:17] LABS: ANISOCYTOSIS OCC; EOSINOPHILS 1 % (0-7); LYMPHOCYTES 78 % (15-50); MONOCYTES 9 % (2-11); NEUTROPHILS 7 % (40-80); PLATELET ESTIMATE NORMAL
== END 2018-02-18 16:15 | disposition home or self-care (01) ==
LOC: D.CATH 10:48
PROVIDERS: Internal Medicine Interventional Cardiology
DX: I20.9 Angina pectoris, unspecified (principal); Z01.812 Encounter for preprocedural laboratory examination